=== PATIENT | female | born 1960 | race Caucasian/White ===

== ENCOUNTER 2024-01-16 10:52 | Outpatient (CLI) | payer BC, SELFPAY ==
[2024-01-16 12:15] LABS: Thyroid Stimulating Hormone < 0.015 uIU/mL (0.465-4.680); Total Triiodothyronine (T3) 1.74 NG/ML (0.97-1.69)
[2024-01-16 12:20] LABS: Free T4 Free Thyroxine 0.68 ng/mL (0.78-2.19)
[2024-01-18 14:12] LABS: Thyrotropin Receptor Antibody <1.00 IU/L (<=2.00)
[2024-01-19 03:01] LABS: Thyroid Peroxidase Antibodies <1 IU/mL (<9)
[2024-01-19 13:37] LABS: Thyroid Stimulating Immunoglob <89 % baseline (<140)
== END 2024-01-16 10:53 | disposition home or self-care (01) ==
PROVIDERS: PCP Emergency Medicine; Visit Provider Internal Medicine
DX: E05.10 Thyrotoxicosis with toxic single thyroid nodule without thyrotoxic crisis or storm (principal)
CPT/HCPCS: 36415; 83519; 84439; 84443; 84445; 84480; 86376